=== PATIENT | female | born 1950 | race Caucasian/White ===

== ENCOUNTER 2018-05-16 21:37 | Inpatient (IN) | payer MEDICARE, OTHER ==
[2018-05-16 22:04] LABS: CHLORIDE,CL 102 mEq/L (98-106); SODIUM,NA 137 mEq/L (136-145)
[2018-05-16] MEDS ORDERED: LORazepam 0.5 MG Tab PO ONE (22:22)
--- NOTE | 2018-05-16 22:38 | EDM.PDOC ---
ED HPI GENERAL MEDICAL PROBLEM - General Chief Complaint: General Stated Complaint: Fever, fatigue Time Seen by Provider: 05/16/18 21:39 Source of Information: Reports: Patient History Limitations: Reports: No Limitations - History of Present Illness INITIAL COMMENTS - FREE TEXT/NARRATIVE: patient was seen by surgery 05/14/18 and had a large seroma drained from her abdomen. she went camping this weekend and began feeling feverish and generally ill. she denies injury to the surgical site. Onset: Gradual Onset Date: 05/14/18 Location: Reports: Generalized Severity: Moderate Context: Reports: Other (seroma drained from abdomen 05/14/18) Associated Symptoms: Reports: Diaphoresis, Fever/Chills, Malaise, Other (nausea) . Denies: Chest Pain - Related Data Allergies Allergy/AdvReac Type Severity Reaction Status Date / Time No Known Allergies Allergy Verified 05/16/18 21:43 ED ROS GENERAL - Review of Systems Review Of Systems: See Below Constitutional: Reports: Fever, Chills, Malaise, Fatigue, Diaphoresis HEENT: Reports: No Symptoms Respiratory: Denies: Shortness of Breath, Cough Cardiovascular: Denies: Chest Pain Endocrine: Reports: Fatigue GI/Abdominal: Reports: Abdominal Pain, Nausea. Denies: Diarrhea, Vomiting : Denies: Discharge, Dysuria, Flank Pain Musculoskeletal: Denies: Neck Pain Skin: Reports: Other (PABLO drain to LLQ) Neurological: Denies: No Symptoms ED EXAM, GENERAL - Physical Exam Exam: See Below General Appearance: Alert, WD/WN, No Apparent Distress Eye Exam: Bilateral Eye: EOMI, PERRL Throat/Mouth: Normal Oropharynx, Normal Voice, No Airway Compromise Neck: Normal Inspection, Supple, Non-Tender, Full Range of Motion Respiratory/Chest: No Respiratory Distress, Lungs Clear, Normal Breath Sounds, No Accessory Muscle Use, Chest Non-Tender Cardiovascular: Normal Peripheral Pulses, Tachycardia Peripheral Pulses: 2+: Radial (L), Radial (R) GI/Abdominal: Tender, Other (hyperactive bowel sounds. surgical site incision with PABLO drain present to LLQ abdomen. erythemetous and tender to touch. no drainage. fluid in PABLO drain is serousanguinous) Back Exam: No: CVA Tenderness (R) Extremities: Normal Inspection Neurological: Alert, Oriented, CN II-XII Intact, Normal Cognition Psychiatric: Anxious Skin Exam: Warm, Intact, No Rash, Diaphoretic Course - Vital Signs Last Recorded V/S: Last Vital Signs Temp 38.7 C H 05/16/18 21:39 Pulse 105 H 05/16/18 21:39 Resp 18 05/16/18 21:39 BP 147/81 H 05/16/18 21:39 Pulse Ox 95 05/16/18 21:39 - Orders/Labs/Meds Labs: Laboratory Tests 05/16/18 05/16/18 Range/Units 21:55 21:55 WBC 15.4 H (5.0-10.0) 10^3/uL RBC 4.15 (4.00-5.50) 10^6/uL Hgb 12.9 (12.0-16.0) g/dL Hct 39.4 (37.0-47.0) % MCV 94.9 H (82.0-94.0) fL MCH 31.1 (27.0-32.0) pg MCHC 32.7 L (33.0-38.0) g/dL RDW Coeff of Jennie 12.6 (11.0-15.0) % Plt Count 324 (150-400) 10^3/uL Neut % (Auto) 70.7 (35-85) % Lymph % (Auto) 13.7 (10-55) % [place] % (Auto) 13.6 (0-16) % Eos % (Auto) 1.7 (0-5) % Baso % (Auto) 0.3 (0-3) % Neut # (Auto) 10.90 H (1.80-7.00) 10^3/uL Lymph # (Auto) 2.12 (1.00-4.80) 10^3/uL [place] # (Auto) 2.10 H (0.00-0.80) 10^3/uL Eos # (Auto) 0.27 (0.00-0.45) 10^3/uL Baso # (Auto) 0.05 10^3/uL Sodium 137 (136-145) mEq/L Potassium 4.1 (3.5-5.0) mEq/L Chloride 102 (98-106) mEq/L Carbon Dioxide 26 (21-32) mmol/L BUN 15 (7-18) mg/dL Creatinine 0.9 (0.6-1.0) mg/dL Est Cr Clr Drug Dosing 58.18 mL/min Estimated GFR (MDRD) > 60 (>=60) mL/min Glucose 184 H D (75-99) mg/dL Calcium 8.9 (8.4-10.1) mg/dL Meds: Medications Discontinued Medications Generic Name Dose Route Start Last Admin Trade Name Freq PRN Reason Stop Dose Admin Lorazepam 1 mg 05/16/18 22:22 05/16/18 22:30 Ativan PO 05/16/18 22:23 1 mg ONETIME ONE Administration Departure - Departure Time of Disposition: 22:38 Disposition: Admitted As Inpatient 66 Condition: Fair Clinical Impression: Sepsis - Discharge Information *PRESCRIPTION DRUG MONITORING PROGRAM REVIEWED*: Not Applicable *COPY OF PRESCRIPTION DRUG MONITORING REPORT IN PATIENT REX: Not Applicable Forms: ED Department Discharge - Problem List Review Problem List Initiated/Reviewed/Updated: Yes - Assessment/Plan Admission H&P: Please use this note as an admission H&P Plan: Sepsis Patient meets sepsis criteria (fever, WBC 15, tachycardia, diaphoresis, tachypnea, and infection source). IV fluid bolus, antibiotics, admit to acute care for further monitoring.
[2018-05-16] MEDS ORDERED: Sodium Chloride 0.9% 1,000 ML IV ONE (22:41)
[2018-05-16] MEDS ORDERED: cefTRIAXone 1 GM Vial IVPUSH ONE (22:44)
[2018-05-16] MEDS ORDERED: Acetaminophen/oxyCODONE 325-5 MG Tab PO PRN (23:20)
[2018-05-16] MEDS ORDERED: Ondansetron 4 MG/2 ML SDV IV PRN (23:20)
[2018-05-16] MEDS ORDERED: Ondansetron 4 MG Tab.DIS PO PRN (23:20)
[2018-05-17] MEDS ORDERED: Sodium Chloride 0.9% 1,000 ML IV ONE ×2 (01:30→02:30)
[2018-05-17] MEDS ORDERED: Sodium Chloride 0.9% 1,000 ML ONE (01:31)
[2018-05-17] MEDS: Acetaminophen 500 MG Tab PO PRN (04:55)
[2018-05-17] MEDS: Sodium Chloride 0.9% 1,000 ML IV SCH ×2 (06:56→14:30)
[2018-05-17 07:19] LABS: CHLORIDE,CL 107 mEq/L (98-106); SODIUM,NA 142 mEq/L (136-145)
[2018-05-17] MEDS: Aspirin 81 MG Tab.EC PO SCH (07:58)
[2018-05-17] MEDS: Gabapentin 300 MG Cap PO SCH ×2 (07:59→19:36)
[2018-05-17] MEDS: Levothyroxine 50 MCG Tab PO SCH (07:59)
[2018-05-17] MEDS: Montelukast 10 MG Tab PO SCH (07:59)
[2018-05-17] MEDS ORDERED: Aspirin 81 MG Tab.Chew PO SCH (08:00)
[2018-05-17] MEDS: Pantoprazole 40 MG Tab.CR PO SCH (08:00)
[2018-05-17] MEDS: metFORMIN 500 MG Tab.ER PO SCH ×2 (09:20→19:36)
[2018-05-17] MEDS ORDERED: Sodium Chloride 0.65% Nasal Spray 45 ML Bottle NAS PRN (16:50)
[2018-05-17] MEDS ORDERED: Temazepam 15 MG Cap PO PRN (17:24)
--- NOTE | 2018-05-17 17:34 | PCM.PN ---
- General Info Date of Service: 05/17/18 Admission Dx/Problem (Free Text): Sepsis Functional Status: Reports: Pain Controlled, Tolerating Diet, Ambulating - Review of Systems General: Reports: Fever, Fatigue, Malaise HEENT: Reports: No Symptoms Pulmonary: Reports: Pleuritic Chest Pain, Cough. Denies: Shortness of Breath Cardiovascular: Denies: Chest Pain, Edema, Lightheadedness Gastrointestinal: Denies: Abdominal Pain, Nausea, Vomiting Genitourinary: Reports: No Symptoms Musculoskeletal: Reports: Foot Pain Skin: Reports: Other (redness to abdominal site) Neurological: Reports: No Symptoms - Patient Data Vitals - Most Recent: Last Vital Signs Temp 98.9 F 05/17/18 15:53 Pulse 76 05/17/18 15:53 Resp 17 05/17/18 15:53 BP 118/62 05/17/18 15:53 Pulse Ox 93 L 05/17/18 15:53 Weight - Most Recent: 264 lb I&O - Last 24 Hours: Intake & Output 05/17/18 05/17/18 05/17/18 06:59 14:59 22:59 Intake Total 1000 Output Total 30 Balance -30 1000 Lab Results Last 24 Hours: Laboratory Results - last 24 hr 05/16/18 05/16/18 05/17/18 Range/Units 21:55 21:55 06:55 WBC 15.4 H (5.0-10.0) 10^3/uL RBC 4.15 (4.00-5.50) 10^6/uL Hgb 12.9 (12.0-16.0) g/dL Hct 39.4 (37.0-47.0) % MCV 94.9 H (82.0-94.0) fL MCH 31.1 (27.0-32.0) pg MCHC 32.7 L (33.0-38.0) g/dL RDW Coeff of Jennie 12.6 (11.0-15.0) % Plt Count 324 (150-400) 10^3/uL Neut % (Auto) 70.7 (35-85) % Lymph % (Auto) 13.7 (10-55) % [place] % (Auto) 13.6 (0-16) % Eos % (Auto) 1.7 (0-5) % Baso % (Auto) 0.3 (0-3) % Neut # (Auto) 10.90 H (1.80-7.00) 10^3/uL Lymph # (Auto) 2.12 (1.00-4.80) 10^3/uL [place] # (Auto) 2.10 H (0.00-0.80) 10^3/uL Eos # (Auto) 0.27 (0.00-0.45) 10^3/uL Baso # (Auto) 0.05 10^3/uL PT (9.7-12.3) SEC INR (0.92-1.18) Sodium 137 (136-145) mEq/L Potassium 4.1 (3.5-5.0) mEq/L Chloride 102 (98-106) mEq/L Carbon Dioxide 26 (21-32) mmol/L BUN 15 (7-18) mg/dL Creatinine 0.9 (0.6-1.0) mg/dL Est Cr Clr Drug Dosing 58.18 mL/min Estimated GFR (MDRD) > 60 (>=60) mL/min Glucose 184 H D (75-99) mg/dL Calcium 8.9 (8.4-10.1) mg/dL Magnesium (1.8-2.4) mg/dL Total Bilirubin (0.0-1.0) mg/dL AST (15-37) U/L ALT (12-78) U/L Alkaline Phosphatase (46-116) U/L Lactate Dehydrogenase 134 (100-190) U/L C-Reactive Protein (0.2-0.8) mg/dL Total Protein (6.4-8.2) g/dL Albumin (3.4-5.0) g/dL 05/17/18 05/17/18 05/17/18 Range/Units 06:55 06:55 06:55 WBC 13.1 H (5.0-10.0) 10^3/uL RBC 3.87 L (4.00-5.50) 10^6/uL Hgb 11.8 L (12.0-16.0) g/dL Hct 37.1 (37.0-47.0) % MCV 95.9 H (82.0-94.0) fL MCH 30.5 (27.0-32.0) pg MCHC 31.8 L (33.0-38.0) g/dL RDW Coeff of Jennie 12.3 (11.0-15.0) % Plt Count 273 (150-400) 10^3/uL Neut % (Auto) 60.6 (35-85) % Lymph % (Auto) 22.4 (10-55) % [place] % (Auto) 14.2 (0-16) % Eos % (Auto) 2.5 (0-5) % Baso % (Auto) 0.3 (0-3) % Neut # (Auto) 7.93 H (1.80-7.00) 10^3/uL Lymph # (Auto) 2.92 (1.00-4.80) 10^3/uL [place] # (Auto) 1.85 H (0.00-0.80) 10^3/uL Eos # (Auto) 0.32 (0.00-0.45) 10^3/uL Baso # (Auto) 0.04 10^3/uL PT 10.7 (9.7-12.3) SEC INR 1.03 (0.92-1.18) Sodium 142 (136-145) mEq/L Potassium 3.9 (3.5-5.0) mEq/L Chloride 107 H (98-106) mEq/L Carbon Dioxide 28 (21-32) mmol/L BUN 10 (7-18) mg/dL Creatinine 0.8 (0.6-1.0) mg/dL Est Cr Clr Drug Dosing 65.45 mL/min Estimated GFR (MDRD) > 60 (>=60) mL/min Glucose 132 H D (75-99) mg/dL Calcium 8.1 L (8.4-10.1) mg/dL Magnesium 2.0 (1.8-2.4) mg/dL Total Bilirubin 0.7 (0.0-1.0) mg/dL AST 19 (15-37) U/L ALT 21 (12-78) U/L Alkaline Phosphatase 78 (46-116) U/L Lactate Dehydrogenase (100-190) U/L C-Reactive Protein (0.2-0.8) mg/dL Total Protein 6.6 (6.4-8.2) g/dL Albumin 2.7 L (3.4-5.0) g/dL 09/10/18 Range/Units 06:55 WBC (5.0-10.0) 10^3/uL RBC (4.00-5.50) 10^6/uL Hgb (12.0-16.0) g/dL Hct (37.0-47.0) % MCV (82.0-94.0) fL MCH (27.0-32.0) pg MCHC (33.0-38.0) g/dL RDW Coeff of Jennie (11.0-15.0) % Plt Count (150-400) 10^3/uL Neut % (Auto) (35-85) % Lymph % (Auto) (10-55) % [place] % (Auto) (0-16) % Eos % (Auto) (0-5) % Baso % (Auto) (0-3) % Neut # (Auto) (1.80-7.00) 10^3/uL Lymph # (Auto) (1.00-4.80) 10^3/uL [place] # (Auto) (0.00-0.80) 10^3/uL Eos # (Auto) (0.00-0.45) 10^3/uL Baso # (Auto) 10^3/uL PT (9.7-12.3) SEC INR (0.92-1.18) Sodium (136-145) mEq/L Potassium (3.5-5.0) mEq/L Chloride (98-106) mEq/L Carbon Dioxide (21-32) mmol/L BUN (7-18) mg/dL Creatinine (0.6-1.0) mg/dL Est Cr Clr Drug Dosing mL/min Estimated GFR (MDRD) (>=60) mL/min Glucose (75-99) mg/dL Calcium (8.4-10.1) mg/dL Magnesium (1.8-2.4) mg/dL Total Bilirubin (0.0-1.0) mg/dL AST (15-37) U/L ALT (12-78) U/L Alkaline Phosphatase (46-116) U/L Lactate Dehydrogenase (100-190) U/L C-Reactive Protein 15.1 H (0.2-0.8) mg/dL Total Protein (6.4-8.2) g/dL Albumin (3.4-5.0) g/dL Josh Results Last 24 Hours: Microbiology 05/17/18 10:31 Gram Stain - Final Abdominal Fluid - Drainage Med Orders - Current: Current Medications Acetaminophen (Tylenol Extra Strength) 1,000 mg PO Q6H PRN PRN Reason: for mild pain Last Admin: 05/17/18 04:55 Dose: 1,000 mg Aspirin (Halfprin) 81 mg PO DAILY [facility] Last Admin: 05/17/18 07:58 Dose: 81 mg Gabapentin (Neurontin) 600 mg PO BID [facility] Last Admin: 05/17/18 07:59 Dose: 600 mg Sodium Chloride (Normal Saline) 1,000 mls @ 150 mls/hr IV ASDIRECTED [facility] Last Admin: 05/17/18 14:30 Dose: 150 mls/hr Levothyroxine Sodium (Synthroid) 50 mcg PO ACBREAKFAST [facility] Last Admin: 05/17/18 07:59 Dose: 50 mcg Metformin HCl (Glucophage Xr) 500 mg PO BID [facility] Last Admin: 05/17/18 09:20 Dose: 500 mg Montelukast Sodium (Singulair) 10 mg PO DAILY [facility] Last Admin: 05/17/18 07:59 Dose: 10 mg Ondansetron HCl (Zofran Odt) 4 mg PO Q4H PRN PRN Reason: nausea, able to take PO Ondansetron HCl (Zofran) 4 mg IV Q4H PRN PRN Reason: Nausea/Vomiting Oxycodone/Acetaminophen (Percocet 325-5 Mg) 1 tab PO Q4H PRN PRN Reason: Pain (moderate 4-6) Pantoprazole Sodium (Protonix) 40 mg PO DAILY [facility] Last Admin: 05/17/18 08:00 Dose: Not Given Sodium Chloride ([place] Nasal [place]) 1 ml TERI BID PRN PRN Reason: Other Last Admin: 05/17/18 17:09 Dose: 1 spray Discontinued Medications Aspirin (Aspirin) 81 mg PO DAILY [facility] Ceftriaxone Sodium (Rocephin) 1 gm IVPUSH ONETIME ONE Stop: 05/16/18 22:45 Last Admin: 05/16/18 23:48 Dose: 1 gm Sodium Chloride (Normal Saline) 1,000 mls @ 1,000 mls/hr IV .BOLUS ONE Stop: 05/16/18 23:40 Last Admin: 05/16/18 23:47 Dose: 1,000 mls/hr Vancomycin HCl 1 gm/ Sodium (Chloride) 250 mls @ 167 mls/hr IV ONETIME ONE Stop: 05/17/18 00:15 Last Admin: 05/16/18 23:49 Dose: 167 mls/hr Sodium Chloride (Normal Saline) Confirm Administered Dose 1,000 mls @ as directed .ROUTE .STK-MED ONE Stop: 05/17/18 01:32 Last Admin: 05/17/18 01:37 Dose: Not Given Sodium Chloride (Normal Saline) 1,000 mls @ 1,000 mls/hr IV BOLUS ONE Stop: 05/17/18 02:29 Last Admin: 05/17/18 01:37 Dose: 1,000 mls/hr Sodium Chloride (Normal Saline) 1,000 mls @ 1,000 mls/hr IV BOLUS ONE Stop: 05/17/18 03:29 Last Admin: 05/17/18 02:39 Dose: 100 mls/hr Lorazepam (Ativan) 1 mg PO ONETIME ONE Stop: 05/16/18 22:23 Last Admin: 05/16/18 22:30 Dose: 1 mg - Exam General: Alert, Oriented HEENT: Mucous Membr. Moist/Day Neck: Supple Lungs: Clear to Auscultation, Normal Respiratory Effort Cardiovascular: Regular Rate, Regular Rhythm GI/Abdominal Exam: Normal Bowel Sounds, Distended, Other (PBALO present to LLQ draining serosanguinous fluid. Abdomen is soft, distended. Nontender. Mild redness noted to surgical site. ) Extremities: Normal Inspection, No Pedal Edema Skin: Warm Neurological: No New Focal Deficit - Problem List & Annotations (1) Sepsis SNOMED Code(s): 70543295 Code(s): A41.9 - SEPSIS, UNSPECIFIED ORGANISM Status: Acute Priority: High Current Visit: Yes Qualifiers: Sepsis type: sepsis due to unspecified organism Qualified Code(s): A41.9 - Sepsis, unspecified organism - Problem List Review Problem List Initiated/Reviewed/Updated: Yes - My Orders Last 24 Hours: My Active Orders 05/17/18 10:31 CULTURE ROUTINE + SMEAR [RM] Routine CULTURE WOUND [RM] Routine 05/17/18 16:50 Sodium Chloride 0.65% [Cidra Nasal [place]] 1 ml TERI BID PRN - Assessment Assessment:: Sepsis - Plan Plan:: Patient feeling better today. Was admitted yesterday with concerns of sepsis related to PABLO insertion/seroma of abdomen. Patient had been ejected off of a horse on April 25. Suffered a 7th rib fracture, fracture to left foot. Had a large contusion to her abdomen. She had noted increasing abdominal girth over 2-3 weeks. Presented to see Marcela in clinic on Thursday. Dr. Finnegan was here and inserted the PABLO. 2 liters of fluid drained from abdomen at that time. Patient went camping over the weekend and felt more ill as the weekend went on. In ER, provider felt surgical site red. Patient has a strong fear of needles so refused blood cultures this am. Requesting to go home if any further needle/lab draws. PABLO intact, site has minimal redness this am, draining serosanguinous drainage. Abdomen is distended but nontender. Highest temp through the night was 99.6. Blood pressure stable. WBC down to 13.1 this am, CRP added today, 15.1. Did agree for no further lab draws unless change in status as do feel beneficial for her to stay and receive IV antibiotics at minimum. Will culture surgical site and fluid to determine if source of fever. Continue with Vancomycin and Rocephin. Patient does agree to this plan.
[2018-05-17] MEDS ORDERED: cefTRIAXone 1 GM Vial IVPUSH SCH (22:00)
[2018-05-18] MEDS: Sodium Chloride 0.9% 1,000 ML IV SCH (02:11)
[2018-05-18] MEDS: metFORMIN 500 MG Tab.ER PO SCH ×2 (08:01→19:25)
[2018-05-18] MEDS: Levothyroxine 50 MCG Tab PO SCH (08:01)
[2018-05-18] MEDS: Aspirin 81 MG Tab.EC PO SCH (08:01)
[2018-05-18] MEDS: Montelukast 10 MG Tab PO SCH (08:01)
[2018-05-18] MEDS: Gabapentin 300 MG Cap PO SCH ×2 (08:02→19:26)
[2018-05-18] MEDS: Pantoprazole 40 MG Tab.CR PO SCH (08:05)
--- NOTE | 2018-05-18 09:13 | PCM.PN ---
- General Info Date of Service: 05/18/18 Admission Dx/Problem (Free Text): Sepsis Functional Status: Reports: Pain Controlled, Tolerating Diet, Ambulating - Review of Systems General: Reports: Fever (low grade fevers). Denies: Weakness, Fatigue HEENT: Reports: No Symptoms Pulmonary: Reports: Pleuritic Chest Pain. Denies: Shortness of Breath, Cough Cardiovascular: Denies: Chest Pain, Edema, Lightheadedness Gastrointestinal: Reports: Other (feels mild distention to left abdomen). Denies: Abdominal Pain, Nausea, Vomiting Genitourinary: Reports: No Symptoms Musculoskeletal: Reports: Foot Pain Skin: Reports: Other Neurological: Reports: No Symptoms - Patient Data Vitals - Most Recent: Last Vital Signs Temp 97.8 F 05/18/18 07:43 Pulse 99 05/18/18 07:43 Resp 20 05/18/18 07:43 BP 135/82 05/18/18 07:43 Pulse Ox 96 05/18/18 07:43 Weight - Most Recent: 264 lb I&O - Last 24 Hours: Intake & Output 05/17/18 05/18/18 05/18/18 22:59 06:59 14:59 Intake Total 1000 Output Total 70 30 Balance 930 -30 Lab Results Last 24 Hours: Laboratory Results - last 24 hr 05/17/18 Range/Units 06:55 Procalcitonin 0.08 (<0.10) ng/mL Josh Results Last 24 Hours: Microbiology 05/17/18 10:31 Gram Stain - Final Abdominal Fluid - Drainage Med Orders - Current: Current Medications Acetaminophen (Tylenol Extra Strength) 1,000 mg PO Q6H PRN PRN Reason: for mild pain Last Admin: 05/17/18 04:55 Dose: 1,000 mg Aspirin (Halfprin) 81 mg PO DAILY [facility] Last Admin: 05/18/18 08:01 Dose: 81 mg Ceftriaxone Sodium (Rocephin) 1 gm IVPUSH Q24H [facility] Last Admin: 05/17/18 22:26 Dose: 1 gm Gabapentin (Neurontin) 600 mg PO BID [facility] Last Admin: 05/18/18 08:02 Dose: 600 mg Sodium Chloride (Normal Saline) 1,000 mls @ 75 mls/hr IV ASDIRECTED [facility] Last Admin: 05/18/18 02:11 Dose: 150 mls/hr Vancomycin HCl 1 gm/ Sodium (Chloride) 250 mls @ 167 mls/hr IV Q12H [facility] Last Admin: 05/18/18 09:01 Dose: 167 mls/hr Levothyroxine Sodium (Synthroid) 50 mcg PO ACBREAKFAST [facility] Last Admin: 05/18/18 08:01 Dose: 50 mcg Metformin HCl (Glucophage Xr) 500 mg PO BID [facility] Last Admin: 05/18/18 08:01 Dose: 500 mg Montelukast Sodium (Singulair) 10 mg PO DAILY [facility] Last Admin: 05/18/18 08:01 Dose: 10 mg Ondansetron HCl (Zofran Odt) 4 mg PO Q4H PRN PRN Reason: nausea, able to take PO Ondansetron HCl (Zofran) 4 mg IV Q4H PRN PRN Reason: Nausea/Vomiting Oxycodone/Acetaminophen (Percocet 325-5 Mg) 1 tab PO Q4H PRN PRN Reason: Pain (moderate 4-6) Pantoprazole Sodium (Protonix) 40 mg PO DAILY [facility] Last Admin: 05/18/18 08:05 Dose: Not Given Sodium Chloride ([place] Nasal [place]) 1 ml TERI BID PRN PRN Reason: Other Last Admin: 05/17/18 17:09 Dose: 1 spray Temazepam (Restoril) 15 mg PO BEDTIME PRN PRN Reason: Insomnia Discontinued Medications Aspirin (Aspirin) 81 mg PO DAILY [facility] Ceftriaxone Sodium (Rocephin) 1 gm IVPUSH ONETIME ONE Stop: 05/16/18 22:45 Last Admin: 05/16/18 23:48 Dose: 1 gm Sodium Chloride (Normal Saline) 1,000 mls @ 1,000 mls/hr IV .BOLUS ONE Stop: 05/16/18 23:40 Last Admin: 05/16/18 23:47 Dose: 1,000 mls/hr Vancomycin HCl 1 gm/ Sodium (Chloride) 250 mls @ 167 mls/hr IV ONETIME ONE Stop: 05/17/18 00:15 Last Admin: 05/16/18 23:49 Dose: 167 mls/hr Sodium Chloride (Normal Saline) Confirm Administered Dose 1,000 mls @ as directed .ROUTE .STK-MED ONE Stop: 05/17/18 01:32 Last Admin: 05/17/18 01:37 Dose: Not Given Sodium Chloride (Normal Saline) 1,000 mls @ 1,000 mls/hr IV BOLUS ONE Stop: 05/17/18 02:29 Last Admin: 05/17/18 01:37 Dose: 1,000 mls/hr Sodium Chloride (Normal Saline) 1,000 mls @ 1,000 mls/hr IV BOLUS ONE Stop: 05/17/18 03:29 Last Admin: 05/17/18 02:39 Dose: 100 mls/hr Lorazepam (Ativan) 1 mg PO ONETIME ONE Stop: 05/16/18 22:23 Last Admin: 05/16/18 22:30 Dose: 1 mg - Exam General: Alert, Oriented HEENT: Mucous Membr. Moist/[place] Neck: Supple Lungs: Clear to Auscultation, Normal Respiratory Effort Cardiovascular: Regular Rate, Regular Rhythm GI/Abdominal Exam: Normal Bowel Sounds, Soft, Non-Tender, Distended, Other (PABLO intact to Left lower quadrant. Has serosanguinous drainage noted. Site with minimal redness. No warmth or tenderness. ) Extremities: Normal Inspection, No Pedal Edema Skin: Warm, Dry, Other (PABLO site has minimal redness, no warmth) Neurological: No New Focal Deficit - Problem List & Annotations (1) Sepsis SNOMED Code(s): 52542581 Code(s): A41.9 - SEPSIS, UNSPECIFIED ORGANISM Status: Acute Priority: High Current Visit: Yes Qualifiers: Sepsis type: sepsis due to unspecified organism Qualified Code(s): A41.9 - Sepsis, unspecified organism - Problem List Review Problem List Initiated/Reviewed/Updated: Yes - My Orders Last 24 Hours: My Active Orders 05/17/18 10:31 CULTURE ROUTINE + SMEAR [RM] Routine CULTURE WOUND [RM] Routine 05/17/18 16:50 Sodium Chloride 0.65% [[place] Nasal [place]] 1 ml TERI BID PRN 05/17/18 17:24 Temazepam [Restoril] 15 mg PO BEDTIME PRN 05/17/18 21:00 Vancomycin 1 gm Sodium Chloride 0.9% [Normal Saline] 250 ml IV Q12H 05/17/18 22:00 cefTRIAXone [Rocephin] 1 gm IVPUSH Q24H - Assessment Assessment:: Sepsis - Plan Plan:: Patient feeling better today. Was admitted yesterday with concerns of sepsis related to PABLO insertion/seroma of abdomen. Patient had been ejected off of a horse on April 25. Suffered a 7th rib fracture, fracture to left foot. Had a large contusion to her abdomen. She had noted increasing abdominal girth over 2-3 weeks. Presented to see Marcela in clinic on Thursday. Dr. Finnegan was here and inserted the PABLO. 2 liters of fluid drained from abdomen at that time. Patient went camping over the weekend and felt more ill as the weekend went on. In ER, provider felt surgical site red. Patient has a strong fear of needles so refused blood cultures this am. Requesting to go home if any further needle/lab draws. PABLO intact, site has minimal redness this am, draining serosanguinous drainage. Abdomen is distended but nontender. Highest temp through the night was 99.6. Blood pressure stable. WBC down to 13.1 this am, CRP added today, 15.1. Did agree for no further lab draws unless change in status as do feel beneficial for her to stay and receive IV antibiotics at minimum. Will culture surgical site and fluid to determine if source of fever. Continue with Vancomycin and Rocephin. Patient does agree to this plan. 05-18-2018 Patient feeling good. Is ambulating about in the hallway without concern. Denies any abdominal pain. PABLO intact. Minimal redness noted. Nontender to the abdomen. Has had 500 ml of serosanguinous drainage from PABLO. Low grade temps. Preliminary culture report has been negative. Will repeat labs in am. Continue IV antibiotics. Possible discharge in am.
[2018-05-18] MEDS: metroNIDAZOLE 500 MG Tab PO SCH (19:26)
[2018-05-18] MEDS: Ciprofloxacin 500 MG Tab PO SCH (19:26)
[2018-05-19] MEDS: Ciprofloxacin 500 MG Tab PO SCH (06:47)
[2018-05-19] MEDS: Acetaminophen 500 MG Tab PO PRN (06:48)
[2018-05-19] MEDS: Levothyroxine 50 MCG Tab PO SCH (06:48)
[2018-05-19] MEDS: Gabapentin 300 MG Cap PO SCH (07:44)
[2018-05-19] MEDS: metFORMIN 500 MG Tab.ER PO SCH (07:44)
[2018-05-19] MEDS: Aspirin 81 MG Tab.EC PO SCH (07:44)
[2018-05-19] MEDS: Montelukast 10 MG Tab PO SCH (07:45)
[2018-05-19] MEDS: Pantoprazole 40 MG Tab.CR PO SCH (07:45)
[2018-05-19] MEDS: metroNIDAZOLE 500 MG Tab PO SCH (07:45)
[2018-05-19 07:54] LABS: CHLORIDE,CL 104 mEq/L (98-106); SODIUM,NA 142 mEq/L (136-145)
--- NOTE | 2018-05-20 21:20 | PCM.DCSUM1 ---
Discharge Summary - Hospital Course Free Text/Narrative:: Patient had presented to ER with complaints of fever, malaise. Patient was thrown off a horse several weeks ago. Did sustain a left foot fracture and left rib fracture. Developed a seroma to her left abdomen. Was seen in clinic by Marcela and Dr. Finnegan. PABLO drain was placed and 2 liters of fluid were drained off. Went camping over the weekend and upon returning home, developed fever. Was admitted with concerns of sepsis from abdominal site. PABLO site was red with warmth, tender. PABLO drains serosanguinous drainage. Initial WBC 15. Started on IV fluids. Given Rocephin and Vancomycin. - Discharge Data Discharge Date: 05/20/18 Discharge Disposition: Home, Self-Care 01 Condition: Fair - Discharge Diagnosis/Problem(s) (1) Sepsis SNOMED Code(s): 73792644 ICD Code: A41.9 - SEPSIS, UNSPECIFIED ORGANISM Status: Acute Priority: High Qualifiers: Sepsis type: sepsis due to unspecified organism Qualified Code(s): A41.9 - Sepsis, unspecified organism - Patient Summary/Data Complications: none Hospital Course: Patient doing well. Afebrile. Labs this am improved, WBC down to 10.7. CRP improved from 15 to 9.3. She has a significant fear of needles so lab draws were limited. Had refused blood cultures on admit. She was adamant about no blood draws or would have left AMA. We did obtain cultures from the PABLO site and the drainage, both have remained negative for concern. Overall, with the IV Vancomycin and Rocephin, she did show improvement although a definite site for infection has not been found. She is up and ambulatory and tolerating well. Appetite has been good. Denies abdominal pain. She continues to have more than 50 ml of serosanguinous drainage from the PABLO per shift. - Patient Instructions Diet: Usual Diet as Tolerated Activity: As Tolerated - Discharge Plan *PRESCRIPTION DRUG MONITORING PROGRAM REVIEWED*: Not Applicable *COPY OF PRESCRIPTION DRUG MONITORING REPORT IN PATIENT REX: Not Applicable Prescriptions/Med Rec: Ciprofloxacin HCl [Cipro] 500 mg PO BID #14 tablet metroNIDAZOLE [Flagyl] 500 mg PO Q8H #21 tab Home Medications: Home Meds Aspirin [Children's Aspirin] 81 mg PO DAILY 05/17/18 [History] Gabapentin [Neurontin] 600 mg PO BID 05/17/18 [History] Levothyroxine [Synthroid] 50 mcg PO ACBREAKFAST 05/17/18 [History] Montelukast [Singulair] 10 mg PO DAILY 05/17/18 [History] Pantoprazole [ProTONIX] 40 mg PO DAILY 05/17/18 [History] metFORMIN HCl [Metformin HCl ER] 500 mg PO BID 05/17/18 [History] Ciprofloxacin HCl [Cipro] 500 mg PO BID #14 tablet 05/19/18 [Rx] metroNIDAZOLE [Flagyl] 500 mg PO Q8H #21 tab 05/19/18 [Rx] Patient Handouts: Sepsis, Adult Forms: ED Department Discharge Referrals: Marcela Crow NP [ED Midlevel Provider] - (follow up with Marcela on Thursday in clinic for hospital recheck) - Discharge Summary/Plan Comment DC Time >30 min.: No Discharge Summary/Plan Comment: Discharge patient home. Continue Flagyl and Cipro. Continue to monitor PABLO drainage as aware that would like to see less than 50 ml per day prior to removing. Did do A1C before discharge and is stable at 6.3 Follow up with Marcela in clinic next week. - General Info Date of Service: 05/20/18 Admission Dx/Problem (Free Text: Sepsis Functional Status: Reports: Pain Controlled, Tolerating Diet, Ambulating - Review of Systems General: Denies: Fever, Weakness, Fatigue, Malaise HEENT: Reports: No Symptoms Pulmonary: Denies: Shortness of Breath, Cough Cardiovascular: Denies: Chest Pain, Edema, Lightheadedness Gastrointestinal: Denies: Abdominal Pain, Nausea, Vomiting Genitourinary: Reports: No Symptoms Musculoskeletal: Reports: Foot Pain Skin: Reports: No Symptoms Neurological: Reports: No Symptoms - Patient Data Vitals - Most Recent: Last Vital Signs Temp 98.2 F 05/19/18 07:56 Pulse 80 05/19/18 07:56 Resp 20 05/19/18 07:56 BP 132/75 05/19/18 07:56 Pulse Ox 98 05/19/18 07:56 Weight - Most Recent: 264 lb MEENA Results - Last 24 hrs: Microbiology 05/17/18 10:31 Wound Culture - Final Abdomen - Left Lower Med Orders - Current: Current Medications Discontinued Medications Acetaminophen (Tylenol Extra Strength) 1,000 mg PO Q6H PRN PRN Reason: for mild pain Last Admin: 05/19/18 06:48 Dose: 1,000 mg Aspirin (Aspirin) 81 mg PO DAILY [facility] Aspirin (Halfprin) 81 mg PO DAILY [facility] Last Admin: 05/19/18 07:44 Dose: 81 mg Ceftriaxone Sodium (Rocephin) 1 gm IVPUSH ONETIME ONE Stop: 05/16/18 22:45 Last Admin: 05/16/18 23:48 Dose: 1 gm Ceftriaxone Sodium (Rocephin) 1 gm IVPUSH Q24H [facility] Last Admin: 05/17/18 22:26 Dose: 1 gm Ciprofloxacin (Ciprofloxacin Hcl) 500 mg PO 0700,1900 [facility] Last Admin: 05/19/18 06:47 Dose: 500 mg Gabapentin (Neurontin) 600 mg PO BID [facility] Last Admin: 05/19/18 07:44 Dose: 600 mg Sodium Chloride (Normal Saline) 1,000 mls @ 1,000 mls/hr IV .BOLUS ONE Stop: 05/16/18 23:40 Last Admin: 05/16/18 23:47 Dose: 1,000 mls/hr Vancomycin HCl 1 gm/ Sodium (Chloride) 250 mls @ 167 mls/hr IV ONETIME ONE Stop: 05/17/18 00:15 Last Admin: 05/16/18 23:49 Dose: 167 mls/hr Sodium Chloride (Normal Saline) Confirm Administered Dose 1,000 mls @ as directed .ROUTE .STK-MED ONE Stop: 05/17/18 01:32 Last Admin: 05/17/18 01:37 Dose: Not Given Sodium Chloride (Normal Saline) 1,000 mls @ 1,000 mls/hr IV BOLUS ONE Stop: 05/17/18 02:29 Last Admin: 05/17/18 01:37 Dose: 1,000 mls/hr Sodium Chloride (Normal Saline) 1,000 mls @ 1,000 mls/hr IV BOLUS ONE Stop: 05/17/18 03:29 Last Admin: 05/17/18 02:39 Dose: 100 mls/hr Sodium Chloride (Normal Saline) 1,000 mls @ 75 mls/hr IV ASDIRECTED [facility] Last Admin: 05/18/18 02:11 Dose: 150 mls/hr Vancomycin HCl 1 gm/ Sodium (Chloride) 250 mls @ 167 mls/hr IV Q12H [facility] Last Admin: 05/18/18 09:01 Dose: 167 mls/hr Levothyroxine Sodium (Synthroid) 50 mcg PO ACBREAKFAST [facility] Last Admin: 05/19/18 06:48 Dose: 50 mcg Lorazepam (Ativan) 1 mg PO ONETIME ONE Stop: 05/16/18 22:23 Last Admin: 05/16/18 22:30 Dose: 1 mg Metformin HCl (Glucophage Xr) 500 mg PO BID [facility] Last Admin: 05/19/18 07:44 Dose: 500 mg Metronidazole (Flagyl) 500 mg PO TID [facility] Last Admin: 05/19/18 07:45 Dose: 500 mg Montelukast Sodium (Singulair) 10 mg PO DAILY [facility] Last Admin: 05/19/18 07:45 Dose: 10 mg Ondansetron HCl (Zofran Odt) 4 mg PO Q4H PRN PRN Reason: nausea, able to take PO Ondansetron HCl (Zofran) 4 mg IV Q4H PRN PRN Reason: Nausea/Vomiting Oxycodone/Acetaminophen (Percocet 325-5 Mg) 1 tab PO Q4H PRN PRN Reason: Pain (moderate 4-6) Pantoprazole Sodium (Protonix) 40 mg PO DAILY [facility] Last Admin: 05/19/18 07:45 Dose: 40 mg Sodium Chloride ([place] Nasal [place]) 1 ml TERI BID PRN PRN Reason: Other Last Admin: 05/17/18 17:09 Dose: 1 spray Temazepam (Restoril) 15 mg PO BEDTIME PRN PRN Reason: Insomnia Last Admin: 05/18/18 19:25 Dose: 15 mg - Exam General: Reports: Alert, Oriented HEENT: Reports: Mucous Membr. Moist/[place] Neck: Reports: Supple Lungs: Reports: Clear to Auscultation, Normal Respiratory Effort Cardiovascular: Reports: Regular Rate, Regular Rhythm GI/Abdominal Exam: Normal Bowel Sounds, Soft, Non-Tender, Other (PABLO intact to LLQ. Small amount of serosanguinous drainage in PABLO. Scant redness noted to PABLO site. Nontender. ) Extremities: Normal Inspection, No Pedal Edema Wound/Incisions: Reports: Erythema Improving Neurological: Reports: No New Focal Deficit
== END 2018-05-19 11:50 | disposition home or self-care (01) | DRG 862 ==
LOC: CC.ED 21:37 → CC.MS 22:47 → UNDOADMIN 23:17 → CC.MS 23:17
PROVIDERS: ADMIT Nurse Practitioner Family; ATTEND Family Medicine
DX: T81.4XXA Infection following a procedure, initial encounter (principal); R53.81 Other malaise; R53.83 Other fatigue; R50.9 Fever, unspecified; R10.9 Unspecified abdominal pain; R11.0 Nausea; A41.9 Sepsis, unspecified organism; Y83.8 Other surgical procedures as the cause of abnormal reaction of the patient, or of later complication, without mention of misadventure at the time of the procedure; S22.39XD Fracture of one rib, unspecified side, subsequent encounter for fracture with routine healing; S92.902D Unspecified fracture of left foot, subsequent encounter for fracture with routine healing; V80.010D Animal-rider injured by fall from or being thrown from horse in noncollision accident, subsequent encounter
CPT/HCPCS: 36415; 80048; 80053; 83036; 83615; 83735; 84145; 85025; 85610; 86140; 87070; 87205; 99284; A9270-GY; J0696; J3370; J7030; J7050

== ENCOUNTER 2020-06-25 20:08 | Inpatient (IN) | payer MEDICARE, OTHER ==
[2020-06-25 20:48] LABS: CHLORIDE,CL 99 mEq/L (98-106); SODIUM,NA 136 mEq/L (136-145)
--- NOTE | 2020-06-25 21:28 | EDM.PDOC ---
ED HPI GENERAL MEDICAL PROBLEM - General Chief Complaint: Respiratory Problem Stated Complaint: SOB, weak Time Seen by Provider: 06/25/20 20:35 Source of Information: Reports: Patient History Limitations: Reports: No Limitations - History of Present Illness INITIAL COMMENTS - FREE TEXT/NARRATIVE: Brigid is a 70 yo female who presents to the ED with c/o generalized body aches, loss of taste/smell, fatigue, weakness, shortness of breath and headache. She reports symptoms started 7 days ago and she has been home in quarantine since then. She reports she was exposed to Covid at the [employer] [place] about a week and a half ago. She reports today she feels her headache and body aches have worsened and she was fearful, prompting ED visit. She feels her symptoms are worsening and she is struggling more to breathe, especially with exertion. O2 sats 89% on RA. Do increase to 91% if calm and not conversing. She does have underlying COPD, type 2 DM- uncontrolled, and obesity. Hx of smoking. She has home albuterol nebs and inhalers, but she has not used them. She reports her appetite has been decreased but she has been drinking without issue. Has had some diarrhea. Feels like she has loose stool anytime she eats or drinks. Has not had fever that she is aware of, but has had chills. Her is also sick with similiar, but more mild symptoms. Onset Date: 06/18/20 Duration: Getting Worse Location: Reports: Generalized Severity: Moderate Improves with: Reports: Medication Associated Symptoms: Reports: Cough, cough w sputum, Fever/Chills, Headaches, Loss of Appetite, Malaise, Shortness of Breath, Weakness. Denies: Confusion, Chest Pain, Diaphoresis, Nausea/Vomiting, Rash, Seizure, Syncope Treatments RIBBON WEAVER: Reports: Acetaminophen, NSAIDS Generalized Pain Score (Numeric/FACES): 5 - Related Data Allergies Allergy/AdvReac Type Severity Reaction Status Date / Time No Known Allergies Allergy Verified 06/25/20 20:32 Home Meds: Home Meds Aspirin [Children's Aspirin] 81 mg PO DAILY 05/17/18 [History] Levothyroxine [Synthroid] 50 mcg PO ACBREAKFAST 05/17/18 [History] Montelukast [Singulair] 10 mg PO DAILY 05/17/18 [History] Pantoprazole [ProTONIX] 40 mg PO DAILY 05/17/18 [History] metFORMIN HCl [Metformin HCl ER] 1,000 mg PO BID 05/17/18 [History] Acetaminophen [Tylenol 8 Hour] 650 mg PO Q4H PRN 01/31/20 [History] Cetirizine [ZyrTEC] 10 mg PO DAILY 01/31/20 [History] Meclizine HCl 25 mg PO TID PRN 01/31/20 [History] Multivitamin 1 each PO DAILY 01/31/20 [History] Naproxen Sodium [Aleve] 220 mg PO DAILY 01/31/20 [History] Ascorbic Acid [Vitamin C] 500 mg PO DAILY 03/05/20 [History] Calcium Carbonate/Vitamin D3 [Calcium 600 + Vit D 200] 1 each PO DAILY 03/05/20 [History] Albuterol [Ventolin HFA] 2 puff INH Q4H PRN 06/26/20 [History] Past Medical History HEENT History: Reports: Impaired Vision Gastrointestinal History: Reports: GERD Musculoskeletal History: Reports: Other (See Below) Other Musculoskeletal History: FOOT INJURY. RIB INJURY Neurological History: Reports: Vertigo Psychiatric History: Reports: Anxiety Endocrine/Metabolic History: Reports: Diabetes, Type II, Obesity/BMI 30+ - Past Surgical History Musculoskeletal Surgical History: Reports: Arthroscopic Knee Social & Family History - Family History Family Medical History: Noncontributory - Tobacco Use Tobacco Use Status *Q: Never Tobacco User - Caffeine Use Caffeine Use: Reports: None ED ROS GENERAL - Review of Systems Review Of Systems: Comprehensive ROS is negative, except as noted in HPI. ED EXAM, GENERAL - Physical Exam Exam: See Below Exam Limited By: No Limitations General Appearance: Alert, WD/WN, No Apparent Distress Eye Exam: Bilateral Eye: Normal Fundi, Normal Inspection, PERRL Ears: Normal External Exam, Normal Canal, Hearing Grossly Normal, Normal TMs Nose: Normal Inspection, No Blood, Nasal Swelling, Nasal Drainage, Clear Rhinorrhea Throat/Mouth: Normal Inspection, Normal Lips, Normal Teeth, Normal Gums, Normal Oropharynx, Normal Voice, No Airway Compromise Head: Atraumatic, Normocephalic Neck: Normal Inspection, Supple, Non-Tender, Full Range of Motion Respiratory/Chest: No Respiratory Distress, No Accessory Muscle Use, Chest Non-Tender, Wheezing. No: Retractions, Splinting Cardiovascular: Normal Peripheral Pulses, Regular Rate, Rhythm, No Gallop, No JVD, No Murmur, No Rub GI/Abdominal: Normal Bowel Sounds, Soft, Non-Tender, No Organomegaly, No Distention, No Abnormal Bruit, No Mass Back Exam: Normal Inspection, Full Range of Motion, NT Extremities: Normal Inspection, Normal Range of Motion, Non-Tender, No Pedal Edema, Normal Capillary Refill, Pedal Edema (trace) Neurological: Alert, Oriented, CN II-XII Intact, Normal Cognition, Normal Gait, Normal Reflexes, No Motor/Sensory Deficits Psychiatric: Anxious Skin Exam: Warm, Dry, Intact, Normal Color, No Rash Lymphatic: No Adenopathy Course - Vital Signs Last Recorded V/S: Last Vital Signs Temp 98.7 F 06/26/20 12:00 Pulse 80 06/26/20 12:00 Resp 26 H 06/26/20 12:00 BP 121/74 06/26/20 12:00 Pulse Ox 89 L 06/26/20 12:00 - Orders/Labs/Meds Orders: Active Orders 24 hr Category Date Time Status Chest 2V [CR] Stat Exams 06/25/20 20:14 Taken Medication Orders Acetaminophen (Tylenol) 650 mg PO Q4H PRN PRN Reason: Pain (Mild 1-3)/fever Last Admin: 06/26/20 02:01 Dose: 650 mg Documented by: MICHELLE Albuterol (Ventolin Hfa) 0 gm INH Q4H PRN PRN Reason: Dyspepsia Last Admin: 06/26/20 12:02 Dose: 2 puff Documented by: Admin: 06/26/20 05:57 Dose: 2 puff Documented by: MARIBEL Albuterol/Ipratropium (Duoneb 3.0-0.5 Mg/3 Ml) 3 ml NEB Q4H PRN PRN Reason: Shortness Of Breath/wheezing Ascorbic Acid (Vitamin C) 500 mg PO DAILY [facility] Aspirin (Aspirin) 81 mg PO DAILY [facility] Calcium Carbonate (Calcium Carbonate/Vitamin D 1250 Mg-200 Unit) 1 tab PO DAILY [facility] Dexamethasone (Dexamethasone) 6 mg PO DAILY [facility] Stop: 07/04/20 08:01 Last Admin: 06/26/20 08:03 Dose: 6 mg Documented by: OMID Enoxaparin Sodium (Lovenox) 40 mg SUBCUT DAILY [facility] Last Admin: 06/26/20 08:04 Dose: 40 mg Documented by: OMID Remdesivir 100 mg/ Sodium (Chloride) 100 mls @ 100 mls/hr IV Q24H [facility] Stop: 06/29/20 20:59 Lactated Ringer's (Ringers, Lactated) 1,000 mls @ 75 mls/hr IV ASDIRECTED [facility] Stop: 06/27/20 01:19 Ibuprofen (Motrin) 600 mg PO Q6H PRN PRN Reason: Pain (mild 1-3) Levothyroxine Sodium (Synthroid) 50 mcg PO ACBREAKFAST [facility] Last Admin: 06/26/20 12:02 Dose: Not Given Documented by: OMID Loratadine (Claritin) 10 mg PO DAILY [facility] Lorazepam (Ativan) 1 mg IVPUSH Q6H PRN PRN Reason: Nausea/Vomiting Last Admin: 06/26/20 05:59 Dose: 1 mg Documented by: MARIBEL Lorazepam (Ativan) 1 mg PO TID PRN PRN Reason: Anxiety Meclizine HCl (Antivert) 12.5 mg PO TID PRN PRN Reason: Dizziness Last Admin: 06/26/20 12:01 Dose: 12.5 mg Documented by: OMID Metformin HCl (Glucophage Xr) 1,000 mg PO BID [facility] Last Admin: 06/26/20 12:01 Dose: 1,000 mg Documented by: OMID Montelukast Sodium (Singulair) 10 mg PO DAILY [facility] Last Admin: 06/26/20 12:01 Dose: 10 mg Documented by: OMID Multivitamins/Minerals/Vitamin C (Tab-A-Suzanna) 1 tab PO DAILY [facility] Last Admin: 06/26/20 12:02 Dose: Not Given Documented by: OMID Ondansetron HCl (Zofran) 4 mg IV Q6H PRN PRN Reason: Nausea/Vomiting Ondansetron HCl (Zofran Odt) 4 mg PO Q6H PRN PRN Reason: nausea, able to take PO Pantoprazole Sodium (Protonix) 40 mg PO DAILY [facility] Sodium Chloride (Saline Flush) 10 ml FLUSH ASDIRECTED PRN PRN Reason: Keep Vein Open Labs: Laboratory Tests 06/25/20 06/25/20 06/25/20 Range/Units 20:00 20:22 20:22 WBC 5.2 (5.0-10.0) 10^3/uL RBC 4.64 (4.00-5.50) 10^6/uL Hgb 14.3 (12.0-16.0) g/dL Hct 42.6 (37.0-47.0) % MCV 91.8 (82.0-94.0) fL MCH 30.8 (27.0-32.0) pg MCHC 33.6 (33.0-38.0) g/dL RDW Coeff of Jennie 12.7 (11.0-15.0) % Plt Count 195 (150-400) 10^3/uL Neut % (Auto) 56.5 (35-85) % Lymph % (Auto) 31.9 (10-55) % [place] % (Auto) 10.4 (0-16) % Eos % (Auto) 1.0 (0-5) % Baso % (Auto) 0.2 (0-3) % Neut # (Auto) 2.92 (1.80-7.00) 10^3/uL Lymph # (Auto) 1.65 (1.00-4.80) 10^3/uL [place] # (Auto) 0.54 (0.00-0.80) 10^3/uL Eos # (Auto) 0.05 (0.00-0.45) 10^3/uL Baso # (Auto) 0.01 10^3/uL D-Dimer, Quantitative (0.00-0.50) Sodium 136 (136-145) mEq/L Potassium 4.2 (3.5-5.0) mEq/L Chloride 99 (98-106) mEq/L Carbon Dioxide 29 (21-32) mmol/L BUN 11 (7-18) mg/dL Creatinine 1.0 (0.6-1.0) mg/dL Est Cr Clr Drug Dosing 50.90 mL/min Estimated GFR (MDRD) 55 L (>=60) mL/min Glucose 231 H D (75-99) mg/dL Lactic Acid (0.4-2.0) mmol/L Calcium 8.9 (8.4-10.1) mg/dL Total Bilirubin 0.3 (0.0-1.0) mg/dL AST 69 H (15-37) U/L ALT 52 (12-78) U/L Alkaline Phosphatase 98 (46-116) U/L Lactate Dehydrogenase 269 H (100-190) U/L Troponin I < 0.017 (0.00-0.06) ng/mL C-Reactive Protein 6.6 H (0.2-0.8) mg/dL Total Protein 8.4 H (6.4-8.2) g/dL Albumin 3.1 L (3.4-5.0) g/dL SARS CoV-2 RNA Rapid ADITYA Positive H (NEGATIVE) 06/25/20 06/25/20 Range/Units 20:22 20:22 WBC (5.0-10.0) 10^3/uL RBC (4.00-5.50) 10^6/uL Hgb (12.0-16.0) g/dL Hct (37.0-47.0) % MCV (82.0-94.0) fL MCH (27.0-32.0) pg MCHC (33.0-38.0) g/dL RDW Coeff of Jennie (11.0-15.0) % Plt Count (150-400) 10^3/uL Neut % (Auto) (35-85) % Lymph % (Auto) (10-55) % [place] % (Auto) (0-16) % Eos % (Auto) (0-5) % Baso % (Auto) (0-3) % Neut # (Auto) (1.80-7.00) 10^3/uL Lymph # (Auto) (1.00-4.80) 10^3/uL [place] # (Auto) (0.00-0.80) 10^3/uL Eos # (Auto) (0.00-0.45) 10^3/uL Baso # (Auto) 10^3/uL D-Dimer, Quantitative 0.67 H (0.00-0.50) Sodium (136-145) mEq/L Potassium (3.5-5.0) mEq/L Chloride (98-106) mEq/L Carbon Dioxide (21-32) mmol/L BUN (7-18) mg/dL Creatinine (0.6-1.0) mg/dL Est Cr Clr Drug Dosing mL/min Estimated GFR (MDRD) (>=60) mL/min Glucose (75-99) mg/dL Lactic Acid 2.6 H (0.4-2.0) mmol/L Calcium (8.4-10.1) mg/dL Total Bilirubin (0.0-1.0) mg/dL AST (15-37) U/L ALT (12-78) U/L Alkaline Phosphatase (46-116) U/L Lactate Dehydrogenase (100-190) U/L Troponin I (0.00-0.06) ng/mL C-Reactive Protein (0.2-0.8) mg/dL Total Protein (6.4-8.2) g/dL Albumin (3.4-5.0) g/dL SARS CoV-2 RNA Rapid ADITYA (NEGATIVE) Meds: Medications Generic Name Dose Route Start Last Admin Trade Name Freq PRN Reason Stop Dose Admin Acetaminophen 650 mg 06/25/20 22:51 06/26/20 02:01 Tylenol PO 650 mg Q4H PRN Administration Pain (Mild 1-3)/fever Albuterol 0 gm 06/26/20 05:30 06/26/20 12:02 Ventolin Hfa INH 2 puff Q4H PRN Administration Dyspepsia Albuterol/Ipratropium 3 ml 06/25/20 22:51 Duoneb 3.0-0.5 Mg/3 Ml NEB Q4H PRN Shortness Of Breath/wheezing Ascorbic Acid 500 mg 06/27/20 08:00 Vitamin C PO DAILY [facility] Aspirin 81 mg 06/27/20 08:00 Aspirin PO DAILY [facility] Calcium Carbonate 1 tab 06/27/20 08:00 Calcium Carbonate/Vitamin D 1250 Mg-200 Unit PO DAILY [facility] Dexamethasone 6 mg 06/26/20 08:00 06/26/20 08:03 Dexamethasone PO 07/04/20 08:01 6 mg DAILY [facility] Administration Enoxaparin Sodium 40 mg 06/26/20 08:00 06/26/20 08:04 Lovenox SUBCUT 40 mg DAILY [facility] Administration Remdesivir 100 mg/ Sodium 100 mls @ 100 mls/hr 06/26/20 20:00 Chloride IV 06/29/20 20:59 Q24H [facility] Lactated Ringer's 1,000 mls @ 75 mls/hr 06/26/20 12:00 Ringers, Lactated IV 06/27/20 01:19 ASDIRECTED [facility] Ibuprofen 600 mg 06/25/20 22:51 Motrin PO Q6H PRN Pain (mild 1-3) Levothyroxine Sodium 50 mcg 06/26/20 10:30 06/26/20 12:02 Synthroid PO Not Given ACBREAKFAST [facility] Loratadine 10 mg 06/27/20 08:00 Claritin PO DAILY [facility] Lorazepam 1 mg 06/25/20 22:51 06/26/20 05:59 Ativan IVPUSH 1 mg Q6H PRN Administration Nausea/Vomiting Lorazepam 1 mg 06/26/20 10:17 Ativan PO TID PRN Anxiety Meclizine HCl 12.5 mg 06/26/20 11:48 06/26/20 12:01 Antivert PO 12.5 mg TID PRN Administration Dizziness Metformin HCl 1,000 mg 06/26/20 12:00 06/26/20 12:01 Glucophage Xr PO 1,000 mg BID [facility] Administration Montelukast Sodium 10 mg 06/26/20 12:00 06/26/20 12:01 Singulair PO 10 mg DAILY [facility] Administration Multivitamins/Minerals/Vitamin C 1 tab 06/26/20 10:15 06/26/20 12:02 Tab-A-Suzanna PO Not Given DAILY [facility] Ondansetron HCl 4 mg 06/25/20 22:51 Zofran IV Q6H PRN Nausea/Vomiting Ondansetron HCl 4 mg 06/25/20 22:51 Zofran Odt PO Q6H PRN nausea, able to take PO Pantoprazole Sodium 40 mg 06/27/20 08:00 Protonix PO DAILY [facility] Sodium Chloride 10 ml 06/25/20 22:51 Saline Flush FLUSH ASDIRECTED PRN Keep Vein Open Discontinued Medications Generic Name Dose Route Start Last Admin Trade Name Freq PRN Reason Stop Dose Admin Acetaminophen 1,000 mg 06/25/20 21:42 06/25/20 21:48 Tylenol PO 06/25/20 21:43 1,000 mg NOW ONE Administration Dexamethasone 6 mg 06/25/20 21:56 06/26/20 01:03 Dexamethasone PO 06/25/20 21:57 Not Given ONETIME ONE Dexamethasone 6 mg 06/25/20 23:04 06/26/20 00:25 Dexamethasone PO 06/25/20 23:05 6 mg ONETIME ONE Administration Remdesivir 200 mg/ Sodium 250 mls @ 250 mls/hr 06/25/20 22:51 06/26/20 00:23 Chloride IV 06/25/20 22:52 250 mls/hr ONETIME ONE Administration Non-Formulary Medication 650 mg 06/26/20 10:13 Acetaminophen [Tylenol 8 Hour] PO Q4H PRN Pain Non-Formulary Medication 220 mg 06/26/20 10:15 Naproxen Sodium [Aleve] PO DAILY [facility] - Re-Assessments/Exams Free Text/Narrative Re-Assessment/Exam: Discussed labs, EKG, and CXR findings with patient. Patient wishes to discharge home. Discussed that with her decreased O2 sat and bilateral pneumonia, I am not comfortable discharging her home and would strongly recommend she stay in the hospital as condition can deteriorate rapidly with covid. Patient is agreeable to admission. Departure - Departure Time of Disposition: 22:00 Disposition: Admitted As Inpatient 66 Condition: Fair Clinical Impression: Pneumonia due to COVID-19 virus, Hypoxia - Discharge Information *PRESCRIPTION DRUG MONITORING PROGRAM REVIEWED*: Not Applicable *COPY OF PRESCRIPTION DRUG MONITORING REPORT IN PATIENT REX: Not Applicable Sepsis Event Note (ED) - Evaluation Sepsis Screening Result: No Definite Risk - Problem List & Annotations (1) Pneumonia due to COVID-19 virus SNOMED Code(s): 886987585505266392 Code(s): U07.1 - COVID-19; J12.89 - OTHER VIRAL PNEUMONIA Status: Acute Current Visit: No (2) Hypoxia SNOMED Code(s): 059477955 Code(s): R09.02 - HYPOXEMIA Status: Acute Current Visit: No - My Orders Last 24 Hours: My Active Orders 06/25/20 20:14 Chest 2V [CR] Stat - Assessment/Plan Admission H&P: Please use this note as an admission H&P Last 24 Hours: My Active Orders 06/25/20 20:14 Chest 2V [CR] Stat Assessment:: Bilateral Pneumonia due to Covid-19 Hypoxia Plan: 70 yo patient presents to the ED with covid symptom complaints. Has had symptoms for 7 days. Was exposed to Covid 10+ days ago. Covid positive. Labs reveal WBC 5.2, D-dimer 0.67, LDH 269, lactic acid 2.6 and CRP 6.6. O2 sats 89% on RA. Will admit to acute and start dexamethasone and remdesivir. Patient is not in acute respiratory distress currently. Will initiate O2 to maintain sats > 92%. Patient agreeable with admission. Transferred to floor in stable condition. Condition guarded. Will need transfer to higher LOC if condition deteriorates. Patient aware and is agreeable.
[2020-06-25] MEDS ORDERED: Acetaminophen 325 MG Tab PO ONE (21:42)
[2020-06-25] MEDS ORDERED: Dexamethasone 4 MG Tab PO ONE ×3 (21:42→23:04)
[2020-06-25] MEDS ORDERED: Ondansetron 4 MG Tab.DIS PO PRN (22:51)
[2020-06-25] MEDS ORDERED: Ondansetron 4 MG/2 ML SDV IV PRN (22:51)
[2020-06-25] MEDS ORDERED: LORazepam 2 MG/ML Syringe IVPUSH PRN (22:51)
[2020-06-25] MEDS ORDERED: Sodium Chloride 0.9% 10 ML Syringe FLUSH PRN (22:51)
[2020-06-25] MEDS ORDERED: Albuterol/Ipratropium 3.0-0.5 MG/3 ML Neb Soln NEB PRN (22:51)
[2020-06-25] MEDS ORDERED: Ibuprofen 200 MG Tab PO PRN (22:51)
[2020-06-25] MEDS ORDERED: Acetaminophen 325 MG Tab PO PRN (22:51)
[2020-06-26] MEDS: Albuterol 8 GM Inhaler INH PRN ×2 (05:57→12:02)
[2020-06-26] MEDS ORDERED: Enoxaparin 40 MG/0.4 ML Syringe SUBCUT SCH (08:00)
[2020-06-26] MEDS ORDERED: Dexamethasone 4 MG Tab PO SCH (08:00)
--- NOTE | 2020-06-26 09:49 | PCM.PN ---
- General Info Date of Service: 06/26/20 - Patient Data Vitals - Most Recent: Last Vital Signs Temp 98.9 F 06/26/20 08:00 Pulse 76 06/26/20 08:00 Resp 24 H 06/26/20 08:00 BP 112/74 06/26/20 08:00 Pulse Ox 94 L 06/26/20 08:00 Weight - Most Recent: 260 lb I&O - Last 24 Hours: Intake & Output 06/25/20 06/26/20 06/26/20 22:59 06:59 14:59 Intake Total 300 Output Total 800 Balance -500 Lab Results Last 24 Hours: Laboratory Results - last 24 hr 06/25/20 06/25/20 06/25/20 Range/Units 20:00 20:22 20:22 WBC 5.2 (5.0-10.0) 10^3/uL RBC 4.64 (4.00-5.50) 10^6/uL Hgb 14.3 (12.0-16.0) g/dL Hct 42.6 (37.0-47.0) % MCV 91.8 (82.0-94.0) fL MCH 30.8 (27.0-32.0) pg MCHC 33.6 (33.0-38.0) g/dL RDW Coeff of Jennie 12.7 (11.0-15.0) % Plt Count 195 (150-400) 10^3/uL Neut % (Auto) 56.5 (35-85) % Lymph % (Auto) 31.9 (10-55) % [place] % (Auto) 10.4 (0-16) % Eos % (Auto) 1.0 (0-5) % Baso % (Auto) 0.2 (0-3) % Neut # (Auto) 2.92 (1.80-7.00) 10^3/uL Lymph # (Auto) 1.65 (1.00-4.80) 10^3/uL [place] # (Auto) 0.54 (0.00-0.80) 10^3/uL Eos # (Auto) 0.05 (0.00-0.45) 10^3/uL Baso # (Auto) 0.01 10^3/uL D-Dimer, Quantitative (0.00-0.50) Sodium 136 (136-145) mEq/L Potassium 4.2 (3.5-5.0) mEq/L Chloride 99 (98-106) mEq/L Carbon Dioxide 29 (21-32) mmol/L BUN 11 (7-18) mg/dL Creatinine 1.0 (0.6-1.0) mg/dL Est Cr Clr Drug Dosing 50.90 mL/min Estimated GFR (MDRD) 55 L (>=60) mL/min Glucose 231 H D (75-99) mg/dL Lactic Acid (0.4-2.0) mmol/L Calcium 8.9 (8.4-10.1) mg/dL Total Bilirubin 0.3 (0.0-1.0) mg/dL AST 69 H (15-37) U/L ALT 52 (12-78) U/L Alkaline Phosphatase 98 (46-116) U/L Lactate Dehydrogenase 269 H (100-190) U/L Troponin I < 0.017 (0.00-0.06) ng/mL C-Reactive Protein 6.6 H (0.2-0.8) mg/dL Total Protein 8.4 H (6.4-8.2) g/dL Albumin 3.1 L (3.4-5.0) g/dL SARS CoV-2 RNA Rapid ADITYA Positive H (NEGATIVE) 06/25/20 06/25/20 06/26/20 Range/Units 20:22 20:22 07:15 WBC 4.3 L (5.0-10.0) 10^3/uL RBC 4.51 (4.00-5.50) 10^6/uL Hgb 13.9 (12.0-16.0) g/dL Hct 41.6 (37.0-47.0) % MCV 92.2 (82.0-94.0) fL MCH 30.8 (27.0-32.0) pg MCHC 33.4 (33.0-38.0) g/dL RDW Coeff of Jennie 12.7 (11.0-15.0) % Plt Count 203 (150-400) 10^3/uL Neut % (Auto) 72.2 (35-85) % Lymph % (Auto) 20.9 (10-55) % [place] % (Auto) 6.7 (0-16) % Eos % (Auto) 0 (0-5) % Baso % (Auto) 0.2 (0-3) % Neut # (Auto) 3.11 (1.80-7.00) 10^3/uL Lymph # (Auto) 0.90 L (1.00-4.80) 10^3/uL [place] # (Auto) 0.29 (0.00-0.80) 10^3/uL Eos # (Auto) 0.00 (0.00-0.45) 10^3/uL Baso # (Auto) 0.01 10^3/uL D-Dimer, Quantitative 0.67 H (0.00-0.50) Sodium (136-145) mEq/L Potassium (3.5-5.0) mEq/L Chloride (98-106) mEq/L Carbon Dioxide (21-32) mmol/L BUN (7-18) mg/dL Creatinine (0.6-1.0) mg/dL Est Cr Clr Drug Dosing mL/min Estimated GFR (MDRD) (>=60) mL/min Glucose (75-99) mg/dL Lactic Acid 2.6 H (0.4-2.0) mmol/L Calcium (8.4-10.1) mg/dL Total Bilirubin (0.0-1.0) mg/dL AST (15-37) U/L ALT (12-78) U/L Alkaline Phosphatase (46-116) U/L Lactate Dehydrogenase (100-190) U/L Troponin I (0.00-0.06) ng/mL C-Reactive Protein (0.2-0.8) mg/dL Total Protein (6.4-8.2) g/dL Albumin (3.4-5.0) g/dL SARS CoV-2 RNA Rapid ADITYA (NEGATIVE) 06/26/20 Range/Units 07:15 WBC (5.0-10.0) 10^3/uL RBC (4.00-5.50) 10^6/uL Hgb (12.0-16.0) g/dL Hct (37.0-47.0) % MCV (82.0-94.0) fL MCH (27.0-32.0) pg MCHC (33.0-38.0) g/dL RDW Coeff of Jennie (11.0-15.0) % Plt Count (150-400) 10^3/uL Neut % (Auto) (35-85) % Lymph % (Auto) (10-55) % [place] % (Auto) (0-16) % Eos % (Auto) (0-5) % Baso % (Auto) (0-3) % Neut # (Auto) (1.80-7.00) 10^3/uL Lymph # (Auto) (1.00-4.80) 10^3/uL [place] # (Auto) (0.00-0.80) 10^3/uL Eos # (Auto) (0.00-0.45) 10^3/uL Baso # (Auto) 10^3/uL D-Dimer, Quantitative (0.00-0.50) Sodium 136 (136-145) mEq/L Potassium 4.7 (3.5-5.0) mEq/L Chloride 99 (98-106) mEq/L Carbon Dioxide 27 (21-32) mmol/L BUN 11 (7-18) mg/dL Creatinine 1.0 (0.6-1.0) mg/dL Est Cr Clr Drug Dosing 50.90 mL/min Estimated GFR (MDRD) 55 L (>=60) mL/min Glucose 318 H* D (75-99) mg/dL Lactic Acid (0.4-2.0) mmol/L Calcium 8.4 (8.4-10.1) mg/dL Total Bilirubin (0.0-1.0) mg/dL AST (15-37) U/L ALT (12-78) U/L Alkaline Phosphatase (46-116) U/L Lactate Dehydrogenase (100-190) U/L Troponin I (0.00-0.06) ng/mL C-Reactive Protein 9.0 H (0.2-0.8) mg/dL Total Protein (6.4-8.2) g/dL Albumin (3.4-5.0) g/dL SARS CoV-2 RNA Rapid ADITYA (NEGATIVE) Med Orders - Current: Current Medications Acetaminophen (Tylenol) 650 mg PO Q4H PRN PRN Reason: Pain (Mild 1-3)/fever Last Admin: 06/26/20 02:01 Dose: 650 mg Documented by: Albuterol (Ventolin Hfa) 0 gm INH Q4H PRN PRN Reason: Dyspepsia Last Admin: 06/26/20 05:57 Dose: 2 puff Documented by: Albuterol/Ipratropium (Duoneb 3.0-0.5 Mg/3 Ml) 3 ml NEB Q4H PRN PRN Reason: Shortness Of Breath/wheezing Dexamethasone (Dexamethasone) 6 mg PO DAILY [facility] Stop: 07/04/20 08:01 Last Admin: 06/26/20 08:03 Dose: 6 mg Documented by: Enoxaparin Sodium (Lovenox) 40 mg SUBCUT DAILY [facility] Last Admin: 06/26/20 08:04 Dose: 40 mg Documented by: Remdesivir 100 mg/ Sodium (Chloride) 100 mls @ 100 mls/hr IV Q24H [facility] Stop: 06/29/20 20:59 Ibuprofen (Motrin) 600 mg PO Q6H PRN PRN Reason: Pain (mild 1-3) Lorazepam (Ativan) 1 mg IVPUSH Q6H PRN PRN Reason: Nausea/Vomiting Last Admin: 06/26/20 05:59 Dose: 1 mg Documented by: Ondansetron HCl (Zofran) 4 mg IV Q6H PRN PRN Reason: Nausea/Vomiting Ondansetron HCl (Zofran Odt) 4 mg PO Q6H PRN PRN Reason: nausea, able to take PO Sodium Chloride (Saline Flush) 10 ml FLUSH ASDIRECTED PRN PRN Reason: Keep Vein Open Discontinued Medications Acetaminophen (Tylenol) 1,000 mg PO NOW ONE Stop: 06/25/20 21:43 Last Admin: 06/25/20 21:48 Dose: 1,000 mg Documented by: Dexamethasone (Dexamethasone) 6 mg PO ONETIME ONE Stop: 06/25/20 21:57 Last Admin: 06/26/20 01:03 Dose: Not Given Documented by: Dexamethasone (Dexamethasone) 6 mg PO ONETIME ONE Stop: 06/25/20 23:05 Last Admin: 06/26/20 00:25 Dose: 6 mg Documented by: Remdesivir 200 mg/ Sodium (Chloride) 250 mls @ 250 mls/hr IV ONETIME ONE Stop: 06/25/20 22:52 Last Admin: 06/26/20 00:23 Dose: 250 mls/hr Documented by: Sepsis Event Note - Evaluation Sepsis Screening Result: No Definite Risk - Focused Exam Vital Signs: Vital Signs Temp Pulse Resp BP Pulse Ox 06/26/20 08:00 98.9 F 76 24 H 112/74 94 L 06/26/20 04:00 98.1 F 91 22 H 128/62 94 L 06/26/20 02:45 100.6 F 88 90 L 06/25/20 23:00 99.0 F 80 20 130/88 93 L 06/25/20 22:51 99 F 89 20 128/66 93 L - Problem List & Annotations (1) Pneumonia due to COVID-19 virus SNOMED Code(s): 008928617162857149 Code(s): U07.1 - COVID-19; J12.89 - OTHER VIRAL PNEUMONIA Status: Acute Current Visit: No (2) Hypoxia SNOMED Code(s): 313083606 Code(s): R09.02 - HYPOXEMIA Status: Acute Current Visit: No - My Orders Last 24 Hours: My Active Orders 06/25/20 20:14 Chest 2V [CR] Stat 06/25/20 22:17 Resuscitation Status Routine 06/25/20 22:51 Acetaminophen [TylenoL] 650 mg PO Q4H PRN Albuterol/Ipratropium [DuoNeb 3.0-0.5 MG/3 ML] 3 ml NEB Q4H PRN Ibuprofen [Motrin] 600 mg PO Q6H PRN LORazepam [Ativan] 1 mg IVPUSH Q6H PRN Ondansetron [Zofran ODT] 4 mg PO Q6H PRN Ondansetron [Zofran] 4 mg IV Q6H PRN Sodium Chloride 0.9% [Saline Flush] 10 ml FLUSH ASDIRECTED PRN 06/25/20 22:51 Patient Status [ADT] Routine Blood Glucose Check, Bedside [RC] BIDMEALS Cardiac Monitoring [RC] 0800,2000 Oxygen Therapy [RC] 2355 Pulse Oximetry [RC] .PRN Up ad Jackie [RC] ASDIRECTED Vital Signs [RC] 0000,0400,0800,1200,1600,2000 Saline Lock Insert [OM.PC] Routine 06/26/20 05:30 Albuterol [Ventolin HFA] 0 gm INH Q4H PRN 06/26/20 08:00 Enoxaparin [Lovenox] 40 mg SUBCUT DAILY dexAMETHasone 6 mg PO DAILY 06/26/20 20:00 Remdesivir (Eua) [Remdesivir (EUA)] 100 mg Sodium Chloride 0.9% [Normal Saline] 100 ml IV Q24H 06/27/20 07:00 C-REACTIVE PROTEIN [CHEM] DAILY CBC WITH AUTO DIFF [HEME] DAILY
[2020-06-26] MEDS ORDERED: ACETAMINOPHEN 650 MG PO PRN (10:13)
[2020-06-26] MEDS ORDERED: Multivitamin Tab PO SCH (10:15)
[2020-06-26] MEDS ORDERED: Non-Formulary Medication 1 Each (Naproxen Sodium [Aleve] 220 MG) PO SCH (10:15)
[2020-06-26] MEDS ORDERED: LORazepam 0.5 MG Tab PO PRN (10:17)
[2020-06-26] MEDS ORDERED: Levothyroxine 50 MCG Tab PO SCH (10:30)
[2020-06-26] MEDS ORDERED: Meclizine 12.5 MG Tab PO PRN (11:48)
[2020-06-26] MEDS ORDERED: Lactated Ringers 1,000 ML IV SCH (12:00)
[2020-06-26] MEDS ORDERED: metFORMIN 500 MG Tab.ER PO SCH (12:00)
[2020-06-26] MEDS ORDERED: Montelukast 10 MG Tab PO SCH (12:00)
[2020-06-26 13:10] LABS: PTT,PARTIAL THROMBOPLSTIN TIME 32.3 SEC (23.2-32.3)
--- NOTE | 2020-06-26 13:30 | PCM.DCSUM1 ---
Discharge Summary - Hospital Course HPI Initial Comments: Brigid is a 70 yo female with PMH significant for obesity, uncontrolled type 2 diabetes, hyperlipidemia, who was admitted to the hospital 06/25/2020 for bilateral covid induced pneumonia with hypoxia. Apparently was on day 7 of symptoms and developed worsening symptoms yesterday evening, prompting ED visit. She was admitted acute. Originally upon admission had O2 saturations of 89% on RA. Throughout this morning, her oxygen needs have been increasing. She currently has O2 sats of 89% on 6 L O2 via NC. RR and work of breathing appears to be worsening as well. VS have otherwise been stable. She did receive 200 mg Remdesivir and 6 mg dexamethasone yesterday evening. She will be transferred to higher level of care. Consulted with Dr. Levy at [facility], who accepted patient for transfer to [facility]. She will be transferred via ALS to [facility]. - Discharge Data Discharge Date: 06/26/20 Discharge Disposition: Home, Self-Care 01 Condition: Poor - Referral to Home Health Primary Care Physician: Marcela Crow NP - Discharge Diagnosis/Problem(s) (1) Pneumonia due to COVID-19 virus SNOMED Code(s): 500369398877441454 ICD Code: U07.1 - COVID-19; J12.89 - OTHER VIRAL PNEUMONIA Status: Acute Current Visit: No (2) Hypoxia SNOMED Code(s): 002519257 ICD Code: R09.02 - HYPOXEMIA Status: Acute Current Visit: No - Patient Instructions Diet: Usual Diet as Tolerated Activity: Rest and Relax Today - Discharge Plan *PRESCRIPTION DRUG MONITORING PROGRAM REVIEWED*: Not Applicable *COPY OF PRESCRIPTION DRUG MONITORING REPORT IN PATIENT REX: Not Applicable Home Medications: Home Meds Aspirin [Children's Aspirin] 81 mg PO DAILY 05/17/18 [History] Levothyroxine [Synthroid] 50 mcg PO ACBREAKFAST 05/17/18 [History] Montelukast [Singulair] 10 mg PO DAILY 05/17/18 [History] Pantoprazole [ProTONIX] 40 mg PO DAILY 05/17/18 [History] metFORMIN HCl [Metformin HCl ER] 1,000 mg PO BID 05/17/18 [History] Acetaminophen [Tylenol 8 Hour] 650 mg PO Q4H PRN 01/31/20 [History] Cetirizine [ZyrTEC] 10 mg PO DAILY 01/31/20 [History] Meclizine HCl 25 mg PO TID PRN 01/31/20 [History] Multivitamin 1 each PO DAILY 01/31/20 [History] Naproxen Sodium [Aleve] 220 mg PO DAILY 01/31/20 [History] Ascorbic Acid [Vitamin C] 500 mg PO DAILY 03/05/20 [History] Calcium Carbonate/Vitamin D3 [Calcium 600 + Vit D 200] 1 each PO DAILY 03/05/20 [History] Albuterol [Ventolin HFA] 2 puff INH Q4H PRN 06/26/20 [History] Forms: ED Department Discharge Referrals: Marcela Crow, [employer] [Primary Care Provider] - - Discharge Summary/Plan Comment DC Time >30 min.: Yes Discharge Summary/Plan Comment: Patient will be transferred to [facility] Intensive Care unit. She will be transferred via ALS. Discussed risks and benefits of transfer with patient. Risks include but not limited to worsening of condition, , and MVA. Benefits of transfer include higher level of care with intensive care capability. Risks of nontransfer include worsening of condition, , no intensive care services. Benefits of nontransfer include convenience. Patient verbalized understanding and was agreeable with transfer. - General Info Date of Service: 06/26/20 Admission Dx/Problem (Free Text: Bilateral Covid Induced Pneumonia Hypoxia Functional Status: Reports: Pain Controlled, New Symptoms (increasing O2 needs) - Review of Systems General: Reports: Fever (low grade), Weakness, Fatigue, Malaise, Chills. Denies: Appetite HEENT: Reports: Headaches, Sinus Congestion, Sore Throat Pulmonary: Reports: Shortness of Breath, Cough, Sputum, Wheezing. Denies: Hemoptysis Cardiovascular: Reports: Chest Pain (achiness), Dyspnea on Exertion. Denies: Orthopnea, Edema Gastrointestinal: Reports: Decreased Appetite, Diarrhea. Denies: Abdominal Pain Genitourinary: Reports: No Symptoms Musculoskeletal: Reports: No Symptoms Skin: Reports: No Symptoms Neurological: Reports: Headache, Weakness. Denies: Confusion, Dizziness, Numbness, Syncope, Tingling, Difficulty Walking Psychiatric: Reports: Anxiety - Patient Data Vitals - Most Recent: Last Vital Signs Temp 98.7 F 06/26/20 12:00 Pulse 80 06/26/20 12:00 Resp 26 H 06/26/20 12:00 BP 121/74 06/26/20 12:00 Pulse Ox 89 L 06/26/20 12:00 Weight - Most Recent: 260 lb I&O - Last 24 hours: Intake & Output 06/25/20 06/26/20 06/26/20 22:59 06:59 14:59 Intake Total 300 Output Total 800 Balance -500 Lab Results - Last 24 hrs: Laboratory Results - last 24 hr 06/25/20 06/25/20 06/25/20 Range/Units 20:00 20:22 20:22 WBC 5.2 (5.0-10.0) 10^3/uL RBC 4.64 (4.00-5.50) 10^6/uL Hgb 14.3 (12.0-16.0) g/dL Hct 42.6 (37.0-47.0) % MCV 91.8 (82.0-94.0) fL MCH 30.8 (27.0-32.0) pg MCHC 33.6 (33.0-38.0) g/dL RDW Coeff of Jennie 12.7 (11.0-15.0) % Plt Count 195 (150-400) 10^3/uL Neut % (Auto) 56.5 (35-85) % Lymph % (Auto) 31.9 (10-55) % [place] % (Auto) 10.4 (0-16) % Eos % (Auto) 1.0 (0-5) % Baso % (Auto) 0.2 (0-3) % Neut # (Auto) 2.92 (1.80-7.00) 10^3/uL Lymph # (Auto) 1.65 (1.00-4.80) 10^3/uL [place] # (Auto) 0.54 (0.00-0.80) 10^3/uL Eos # (Auto) 0.05 (0.00-0.45) 10^3/uL Baso # (Auto) 0.01 10^3/uL PT (9.7-12.3) SEC INR (0.92-1.18) APTT (23.2-32.3) SEC D-Dimer, Quantitative (0.00-0.50) Sodium 136 (136-145) mEq/L Potassium 4.2 (3.5-5.0) mEq/L Chloride 99 (98-106) mEq/L Carbon Dioxide 29 (21-32) mmol/L BUN 11 (7-18) mg/dL Creatinine 1.0 (0.6-1.0) mg/dL Est Cr Clr Drug Dosing 50.90 mL/min Estimated GFR (MDRD) 55 L (>=60) mL/min Glucose 231 H D (75-99) mg/dL Lactic Acid (0.4-2.0) mmol/L Calcium 8.9 (8.4-10.1) mg/dL Total Bilirubin 0.3 (0.0-1.0) mg/dL AST 69 H (15-37) U/L ALT 52 (12-78) U/L Alkaline Phosphatase 98 (46-116) U/L Lactate Dehydrogenase 269 H (100-190) U/L Troponin I < 0.017 (0.00-0.06) ng/mL C-Reactive Protein 6.6 H (0.2-0.8) mg/dL Total Protein 8.4 H (6.4-8.2) g/dL Albumin 3.1 L (3.4-5.0) g/dL SARS CoV-2 RNA Rapid ADITYA Positive H (NEGATIVE) 06/25/20 06/25/20 06/26/20 Range/Units 20:22 20:22 07:15 WBC 4.3 L (5.0-10.0) 10^3/uL RBC 4.51 (4.00-5.50) 10^6/uL Hgb 13.9 (12.0-16.0) g/dL Hct 41.6 (37.0-47.0) % MCV 92.2 (82.0-94.0) fL MCH 30.8 (27.0-32.0) pg MCHC 33.4 (33.0-38.0) g/dL RDW Coeff of Jennie 12.7 (11.0-15.0) % Plt Count 203 (150-400) 10^3/uL Neut % (Auto) 72.2 (35-85) % Lymph % (Auto) 20.9 (10-55) % [place] % (Auto) 6.7 (0-16) % Eos % (Auto) 0 (0-5) % Baso % (Auto) 0.2 (0-3) % Neut # (Auto) 3.11 (1.80-7.00) 10^3/uL Lymph # (Auto) 0.90 L (1.00-4.80) 10^3/uL [place] # (Auto) 0.29 (0.00-0.80) 10^3/uL Eos # (Auto) 0.00 (0.00-0.45) 10^3/uL Baso # (Auto) 0.01 10^3/uL PT (9.7-12.3) SEC INR (0.92-1.18) APTT (23.2-32.3) SEC D-Dimer, Quantitative 0.67 H (0.00-0.50) Sodium (136-145) mEq/L Potassium (3.5-5.0) mEq/L Chloride (98-106) mEq/L Carbon Dioxide (21-32) mmol/L BUN (7-18) mg/dL Creatinine (0.6-1.0) mg/dL Est Cr Clr Drug Dosing mL/min Estimated GFR (MDRD) (>=60) mL/min Glucose (75-99) mg/dL Lactic Acid 2.6 H (0.4-2.0) mmol/L Calcium (8.4-10.1) mg/dL Total Bilirubin (0.0-1.0) mg/dL AST (15-37) U/L ALT (12-78) U/L Alkaline Phosphatase (46-116) U/L Lactate Dehydrogenase (100-190) U/L Troponin I (0.00-0.06) ng/mL C-Reactive Protein (0.2-0.8) mg/dL Total Protein (6.4-8.2) g/dL Albumin (3.4-5.0) g/dL SARS CoV-2 RNA Rapid ADITYA (NEGATIVE) 06/26/20 06/26/20 Range/Units 07:15 11:36 WBC (5.0-10.0) 10^3/uL RBC (4.00-5.50) 10^6/uL Hgb (12.0-16.0) g/dL Hct (37.0-47.0) % MCV (82.0-94.0) fL MCH (27.0-32.0) pg MCHC (33.0-38.0) g/dL RDW Coeff of Jennie (11.0-15.0) % Plt Count (150-400) 10^3/uL Neut % (Auto) (35-85) % Lymph % (Auto) (10-55) % [place] % (Auto) (0-16) % Eos % (Auto) (0-5) % Baso % (Auto) (0-3) % Neut # (Auto) (1.80-7.00) 10^3/uL Lymph # (Auto) (1.00-4.80) 10^3/uL [place] # (Auto) (0.00-0.80) 10^3/uL Eos # (Auto) (0.00-0.45) 10^3/uL Baso # (Auto) 10^3/uL PT 10.8 (9.7-12.3) SEC INR 1.07 (0.92-1.18) APTT 32.3 (23.2-32.3) SEC D-Dimer, Quantitative 0.80 H (0.00-0.50) Sodium 136 (136-145) mEq/L Potassium 4.7 (3.5-5.0) mEq/L Chloride 99 (98-106) mEq/L Carbon Dioxide 27 (21-32) mmol/L BUN 11 (7-18) mg/dL Creatinine 1.0 (0.6-1.0) mg/dL Est Cr Clr Drug Dosing 50.90 mL/min Estimated GFR (MDRD) 55 L (>=60) mL/min Glucose 318 H* D (75-99) mg/dL Lactic Acid (0.4-2.0) mmol/L Calcium 8.4 (8.4-10.1) mg/dL Total Bilirubin (0.0-1.0) mg/dL AST (15-37) U/L ALT (12-78) U/L Alkaline Phosphatase (46-116) U/L Lactate Dehydrogenase (100-190) U/L Troponin I (0.00-0.06) ng/mL C-Reactive Protein 9.0 H (0.2-0.8) mg/dL Total Protein (6.4-8.2) g/dL Albumin (3.4-5.0) g/dL SARS CoV-2 RNA Rapid ADITYA (NEGATIVE) Med Orders - Current: Current Medications Acetaminophen (Tylenol) 650 mg PO Q4H PRN PRN Reason: Pain (Mild 1-3)/fever Last Admin: 06/26/20 02:01 Dose: 650 mg Documented by: Albuterol (Ventolin Hfa) 0 gm INH Q4H PRN PRN Reason: Dyspepsia Last Admin: 06/26/20 12:02 Dose: 2 puff Documented by: Albuterol/Ipratropium (Duoneb 3.0-0.5 Mg/3 Ml) 3 ml NEB Q4H PRN PRN Reason: Shortness Of Breath/wheezing Ascorbic Acid (Vitamin C) 500 mg PO DAILY [facility] Aspirin (Aspirin) 81 mg PO DAILY [facility] Calcium Carbonate (Calcium Carbonate/Vitamin D 1250 Mg-200 Unit) 1 tab PO DAILY [facility] Dexamethasone (Dexamethasone) 6 mg PO DAILY [facility] Stop: 07/04/20 08:01 Last Admin: 06/26/20 08:03 Dose: 6 mg Documented by: Enoxaparin Sodium (Lovenox) 40 mg SUBCUT DAILY [facility] Last Admin: 06/26/20 08:04 Dose: 40 mg Documented by: Remdesivir 100 mg/ Sodium (Chloride) 100 mls @ 100 mls/hr IV Q24H [facility] Stop: 06/29/20 20:59 Lactated Ringer's (Ringers, Lactated) 1,000 mls @ 75 mls/hr IV ASDIRECTED [facility] Stop: 06/27/20 01:19 Ibuprofen (Motrin) 600 mg PO Q6H PRN PRN Reason: Pain (mild 1-3) Levothyroxine Sodium (Synthroid) 50 mcg PO ACBREAKFAST [facility] Last Admin: 06/26/20 12:02 Dose: Not Given Documented by: Loratadine (Claritin) 10 mg PO DAILY [facility] Lorazepam (Ativan) 1 mg IVPUSH Q6H PRN PRN Reason: Nausea/Vomiting Last Admin: 06/26/20 05:59 Dose: 1 mg Documented by: Lorazepam (Ativan) 1 mg PO TID PRN PRN Reason: Anxiety Meclizine HCl (Antivert) 12.5 mg PO TID PRN PRN Reason: Dizziness Last Admin: 10/20/20 12:01 Dose: 12.5 mg Documented by: Metformin HCl (Glucophage Xr) 1,000 mg PO BID [facility] Last Admin: 06/26/20 12:01 Dose: 1,000 mg Documented by: Montelukast Sodium (Singulair) 10 mg PO DAILY [facility] Last Admin: 06/26/20 12:01 Dose: 10 mg Documented by: Multivitamins/Minerals/Vitamin C (Tab-A-Suzanna) 1 tab PO DAILY [facility] Last Admin: 06/26/20 12:02 Dose: Not Given Documented by: Ondansetron HCl (Zofran) 4 mg IV Q6H PRN PRN Reason: Nausea/Vomiting Ondansetron HCl (Zofran Odt) 4 mg PO Q6H PRN PRN Reason: nausea, able to take PO Pantoprazole Sodium (Protonix) 40 mg PO DAILY [facility] Sodium Chloride (Saline Flush) 10 ml FLUSH ASDIRECTED PRN PRN Reason: Keep Vein Open Discontinued Medications Acetaminophen (Tylenol) 1,000 mg PO NOW ONE Stop: 06/25/20 21:43 Last Admin: 06/25/20 21:48 Dose: 1,000 mg Documented by: Dexamethasone (Dexamethasone) 6 mg PO ONETIME ONE Stop: 06/25/20 21:57 Last Admin: 06/26/20 01:03 Dose: Not Given Documented by: Dexamethasone (Dexamethasone) 6 mg PO ONETIME ONE Stop: 06/25/20 23:05 Last Admin: 06/26/20 00:25 Dose: 6 mg Documented by: Remdesivir 200 mg/ Sodium (Chloride) 250 mls @ 250 mls/hr IV ONETIME ONE Stop: 06/25/20 22:52 Last Admin: 06/26/20 00:23 Dose: 250 mls/hr Documented by: Non-Formulary Medication (Acetaminophen [Tylenol 8 Hour]) 650 mg PO Q4H PRN PRN Reason: Pain Non-Formulary Medication (Naproxen Sodium [Aleve]) 220 mg PO DAILY PENDING SALE TO [facility] - Exam Quality Assessment: Reports: Supplemental Oxygen (6 L via NC) General: Reports: Alert, Oriented, Mild Distress Neck: Reports: Supple, Trachea Midline Lungs: Reports: Decreased Breath Sounds, Wheezing, Other (increased respiratory effort ) Cardiovascular: Reports: Regular Rate, Regular Rhythm GI/Abdominal Exam: Normal Bowel Sounds, Soft, Non-Tender, No Organomegaly, No Distention, No Abnormal Bruit, No Mass, Pelvis Stable Back Exam: Reports: Normal Inspection, Full Range of Motion Extremities: Normal Inspection, Normal Range of Motion, Non-Tender, No Pedal Edema, Normal Capillary Refill Skin: Reports: Warm, Dry, Intact Neurological: Reports: No New Focal Deficit Psy/Mental Status: Reports: Anxious
[2020-06-26] MEDS ORDERED: REMDESIVIR (EUA) 100 MG in Sodium Chloride 0.9% 100 ML IV SCH (20:00)
[2020-06-27] MEDS ORDERED: Calcium Carbonate/Vitamin D3 1250 MG-200 Unit Tab PO SCH (08:00)
[2020-06-27] MEDS ORDERED: Aspirin 81 MG Tab.Chew PO SCH (08:00)
[2020-06-27] MEDS ORDERED: Loratadine 10 MG Tab PO SCH (08:00)
[2020-06-27] MEDS ORDERED: Pantoprazole 40 MG Tab.CR PO SCH (08:00)
[2020-06-27] MEDS ORDERED: Ascorbic Acid 500 MG Tab PO SCH (08:00)
== END 2020-06-26 15:33 | DRG 177 ==
LOC: CC.ED 20:08 → UNDOADMIN 22:00 → CC.MS 22:00 → UNDODISIN 06-26 15:33
PROVIDERS: ADMIT Nurse Practitioner Family; ATTEND Family Medicine
PROC: XW033E5 Introduction of Remdesivir Anti-infective into Peripheral Vein, Percutaneous Approach, New Technology Group 5 (ICD-10-PCS; principal; 2020-06-25)
PROC: 8E0ZXY6 Isolation (ICD-10-PCS; 2020-06-25)
DX: U07.1 COVID-19 (principal); J12.89 Other viral pneumonia; E66.9 Obesity, unspecified; E11.9 Type 2 diabetes mellitus without complications; E78.5 Hyperlipidemia, unspecified; R09.02 Hypoxemia; J44.9 Chronic obstructive pulmonary disease, unspecified; H54.7 Unspecified visual loss; K21.9 Gastro-esophageal reflux disease without esophagitis; F41.9 Anxiety disorder, unspecified; Z79.890 Hormone replacement therapy; Z79.82 Long term (current) use of aspirin; Z79.899 Other long term (current) drug therapy; Z79.84 Long term (current) use of oral hypoglycemic drugs; Z87.891 Personal history of nicotine dependence
CPT/HCPCS: 36415; 71046; 80048; 80053; 83605; 83615; 84484; 85025; 85379; 85610; 85730; 86140; 86900; 86901; 93005; 99285-25; A9270-GY; J1650; J2060; J7050; J8540; U0002

== ENCOUNTER 2023-02-07 21:54 | Emergency (ER) | payer MEDICARE, OTHER ==
[2023-02-07] MEDS ORDERED: Ibuprofen 200 MG Tab PO ONE (22:17)
[2023-02-07 22:30] LABS: BASOPHILS ABSOLUTE AUTO 0.05 10^3/uL (0.00-0.50); BASOPHILS PERCENT AUTO 0.4 % (0-1); EOSINOPHILS ABSOLUTE AUTO 0.17 10^3/uL (0.00-1.50); EOSINOPHILS PERCENT AUTO 1.4 % (0-6); HEMATOCRIT 39.7 % (37.0-47.0); HEMOGLOBIN 13.5 g/dL (12.0-16.0); IMMATURE GRAN ABSOLUTE AUTO 0.01 10^3/uL (0.00-0.49); IMMATURE GRAN PERCENT AUTO 0.1 % (0.0-4.9); LYMPHOCYTES PERCENT AUTO 21.3 % (24-44); MEAN CORPUSCULAR HEMOGLOBIN 31.4 pg (27.0-32.0); MEAN CORPUSCULAR VOLUME 92.3 fL (83.0-97.0); MONOCYTES ABSOLUTE AUTO 1.41 10^3/uL (0.00-1.50); NEUTROPHILS ABSOLUTE AUTO 7.62 x10^3/uL (1.80-8.00); NEUTROPHILS PERCENT AUTO 64.8 % (41-71); PLATELET COUNT,PLT 278 10^3/uL (150-400); WHITE BLOOD CELL COUNT,WBC 11.8 10^3/uL (4.0-11.0)
[2023-02-07] MEDS ORDERED: Take Home: Cefuroxime 250 MG Tab, 2 Tab Pack PO ONE ×2 (22:35→22:53)
[2023-02-07 22:36] LABS: APPEARANCE,URINE CLEAR (CLEAR); BILIRUBIN,URINE NEGATIVE (NEGATIVE); COLOR,URINE YELLOW (YELLOW); GLUCOSE,URINE NEGATIVE (NEGATIVE); KETONES,URINE NEGATIVE (NEGATIVE); LEUKOCYTE ESTERASE,URINE NEGATIVE (NEGATIVE); NITRITE,URINE NEGATIVE (NEGATIVE); OCCULT BLOOD,URINE NEGATIVE (NEGATIVE); PROTEIN,URINE NEGATIVE (NEGATIVE); UROBILINOGEN,URINE 0.2 EU/dL (0.2-1.0)
[2023-02-07 22:43] LABS: ALBUMIN 3.6 g/dL (3.4-5.0); BILIRUBIN TOTAL 1.2 mg/dL (0.0-1.0); C-REACTIVE PROTEIN 2.2 mg/dL (0.2-0.8); CALCIUM 9.5 mg/dL (8.4-10.1); CREATININE 0.9 mg/dL (0.6-1.0); EST CRCL DRUG DOSING (CG) 54.94 mL/min; POTASSIUM,K 4.5 mEq/L (3.5-5.0); PROTEIN TOTAL,TP 8.6 g/dL (6.4-8.2)
== END 2023-02-07 23:31 | disposition home or self-care (01) ==
LOC: CC.ED 21:54
DX: R10.9 Unspecified abdominal pain (principal); R79.89 Other specified abnormal findings of blood chemistry; K21.9 Gastro-esophageal reflux disease without esophagitis; E11.9 Type 2 diabetes mellitus without complications; E66.9 Obesity, unspecified; Z68.38 Body mass index [BMI] 38.0-38.9, adult; Z79.84 Long term (current) use of oral hypoglycemic drugs; Z79.899 Other long term (current) drug therapy; Z86.16 Personal history of COVID-19
CPT/HCPCS: 36415; 80053; 81003; 85025; 86140; 86308; 99284; A9270-GY

== ENCOUNTER 2024-12-13 19:10 | Emergency (ER) | payer MEDICARE ==
[2024-12-13] MEDS: Take Home: predniSONE 20 MG, 2 Tab Pack PO ONE (20:09)
== END 2024-12-13 20:20 | disposition home or self-care (01) ==
LOC: CC.ED 19:10 → SUPCPDRO 19:10 → CC.ED 20:20
DX: S83.91XA Sprain of unspecified site of right knee, initial encounter (principal); E11.9 Type 2 diabetes mellitus without complications; E66.9 Obesity, unspecified; Z86.16 Personal history of COVID-19; Z79.890 Hormone replacement therapy; Z79.899 Other long term (current) drug therapy; Z68.37 Body mass index [BMI] 37.0-37.9, adult; W55.12XA Struck by horse, initial encounter
CPT/HCPCS: 73562-RT; 99283; J7512